=== PATIENT | male | born 1990 | race American Indian/Alaskan Native ===

== ENCOUNTER 2016-09-14 20:56 | Emergency (ER) | payer BC, OTHER ==
[2016-09-14 22:50] LABS: Basophils % (Auto) 0.3 % (0.0-1.8); Eosinophils % (Auto) 4.2 % (0.0-4.3); Hematocrit 44.8 % (35.5-45.6); Hemoglobin 15.5 gm/dl (11.8-15.2); Mean Corpuscular HGB Conc 35 % (32-34); Mean Corpuscular Hemoglobin 30 pg (28-32); Mean Corpuscular Volume 87 fl (84-94); Platelet Count 264 K/mm3 (140-440); Red Blood Count 5.13 M/mm3 (3.65-5.03); Red Cell Distribution Width 13.5 % (13.2-15.2); White Blood Count 10.9 K/mm3 (4.5-11.0)
[2016-09-14 23:06] LABS: Bilirubin,Urine NEG (Negative); Blood,Urine NEG (Negative); Ketones,Urine NEG (Negative); Leukocyte Esterase,Urine NEG (Negative); Nitrite,Urine NEG (Negative); Protein,Urine <15 mg/dL mg/dL (Negative); Urobilinogen,Urine < 2.0 mg/dL (<2.0); WBC,Urine < 1.0 /HPF (0.0-6.0)
[2016-09-14 23:11] LABS: Alanine Aminotransferase 16 units/L (7-56); Albumin 4.5 g/dL (3.9-5); Albumin/Globulin Ratio 1.7 %; Alkaline Phosphatase 88 units/L (35-129); Anion Gap 17 mmol/L; Bilirubin,Total 0.2 mg/dL (0.1-1.2); Blood Urea Nitrogen 14 mg/dL (9-20); Calcium 9.4 mg/dL (8.4-10.2); Carbon Dioxide 29 mmol/L (22-30); Chloride 97.5 mmol/L (98-107); Glucose 93 mg/dL (75-100); Lipase 59 units/L (13-60); Potassium 4.1 mmol/L (3.6-5.0); Sodium 139 mmol/L (137-145); Total Protein 7.2 g/dL (6.3-8.2)
[2016-09-15] MEDS ORDERED: NACL 0.9% 1000 ML IV ONE (11:16)
[2016-09-15] MEDS ORDERED: NACL ONE (11:18)
[2016-09-15] MEDS ORDERED: ZOFRAN IV ONE (11:18)
[2016-09-15] MEDS ORDERED: PROTONIX IV ONE (11:18)
--- NOTE | 2016-09-15 11:22 | Emergency Department Report ---
HPI - General Chief Complaint: Abdominal Pain Time Seen by Provider: 09/15/16 10:58 - HPI HPI: Chief complaint: Nausea vomiting and diarrhea HPI: Patient complains of a 2 day history of nausea and vomiting and soft bowel movements. Patient complains of upper abdominal pain that is sharp and continuous. Patient denies melena. Patient states he has to 3 episodes of emesis a day but is able to eat fluids down and crackers. Patient states he's had approximately 5 soft stools a day for the last 2 days. No blood in vomit or stool. Patient has had occasional episodes of gastroenteritis but nothing has ever lasted for 2 days. Patient states he has an uncle with Crohn's disease. Mode of arrival: private car Source: Patient Began: 2 days ago Duration: 2 days Context: See above Quality: Sharp Severity: Mild to moderate Improved with: Nothing Worsened with: Nothing Associated signs and symptoms: Patient has a smoker's cough but no fever. ED Past Medical Hx - Past Medical History Previous Medical History?: Yes Hx Hypertension: Yes - Surgical History Past Surgical History?: No - Social History Smoking Status: Current Every Day Smoker Substance Use Type: None - Medications Home Medications: Home Medications Medication Instructions Recorded Confirmed Last Taken Type Hyoscyamine Subl [Levsin Sl 0.125 0.125 mg SL Q6HR PRN #20 tab 12/09/15 Unknown Rx TAB] Metoprolol [Lopressor] 25 mg PO QDAY 12/09/15 12/13/15 12/12/15 21:00 History Promethazine [Phenergan TAB] 25 mg PO Q6HR PRN #20 tab 12/09/15 12/13/15 Unknown Rx Ibuprofen [Motrin] 600 mg PO Q8H PRN #20 tablet 12/13/15 Unknown Rx Penicillin Vk [Veetids TAB] 500 mg PO BID #20 tablet 12/13/15 Unknown Rx Omeprazole Magnesium [PriLOSEC Otc] 20 mg PO QDAY #10 tablet. 09/15/16 Unknown Rx Ondansetron [Zofran Odt] 4 mg PO Q4H PRN #7 tab.gaildis 09/15/16 Unknown Rx ED Review of Systems ROS: Stated complaint: ABD PAIN Other details as noted in HPI ROS Constitutional: No fever ENT: No uri symptoms Cardiovascular: No chest pain Respiratory: No sob GI: See HPI : No dysuria frequency or urgency, Skin: No rash Neuro: No focal weakness or numbness Psych: No depression Elvis/lymph: No edema Physical Exam - Physical Exam Vital Signs: Vital Signs 09/14/16 09/15/16 09/15/16 21:58 02:19 05:55 Temperature 98.3 F 98.1 F 97.9 F Pulse Rate 60 70 69 Respiratory 18 18 18 Rate Blood Pressure 124/71 Blood Pressure 122/72 123/69 [Left] O2 Sat by Pulse 99 99 100 Oximetry Physical Exam: GENERAL: The patient is well-developed well-nourished . HEENT: Normocephalic. Atraumatic. Extraocular motions are intact. Patient has moist mucous membranes. NECK: Supple. No meningitic signs are noted. There is no adenopathy noted. CHEST/LUNGS: Clear to auscultation. There is no respiratory distress noted. HEART/CARDIOVASCULAR: Regular. There is no tachycardia. There is no gallop rub or murmur. ABDOMEN: Abdomen is soft, epigastric and upper abdominal tenderness without rebound or guarding. Patient has normal bowel sounds. There is no abdominal distention. SKIN: There is no rash. There is no edema. There is no diaphoresis. NEURO: The patient is awake, alert, and oriented. The patient is cooperative. The patient has no focal neurologic deficits. The patient has normal speech. MUSCULOSKELETAL: There is no tenderness or deformity. There is no limitation range of motion. There is no evidence of acute injury. ED Course Vital Signs 09/14/16 09/15/16 09/15/16 21:58 02:19 05:55 Temperature 98.3 F 98.1 F 97.9 F Pulse Rate 60 70 69 Respiratory 18 18 18 Rate Blood Pressure 124/71 Blood Pressure 122/72 123/69 [Left] O2 Sat by Pulse 99 99 100 Oximetry - Reevaluation(s) Reevaluation #1: 09/15/16 11:24 Patient will be given a liter of normal saline and Zofran Protonix IV. ED Medical Decision Making - Lab Data Result diagrams: 09/14/16 22:32 09/14/16 22:32 Laboratory Tests 09/14/16 22:32 Lipase 59 Urinalysis within normal limits. - Radiology Data Radiology results: report reviewed (CT abdomen shows no acute process.) Critical care attestation.: If time is entered above; I have spent that time in minutes in the direct care of this critically ill patient, excluding procedure time. ED Disposition Clinical Impression: Gastroenteritis Disposition: DISCHARGED TO HOME OR SELFCARE Is pt being admited?: No Does the pt Need Aspirin: No Condition: Stable Instructions: Gastroenteritis (ED) Prescriptions: Omeprazole Magnesium [PriLOSEC Otc] 20 mg PO QDAY #10 tablet. Ondansetron [Zofran Odt] 4 mg PO Q4H PRN #7 tab.rapdis PRN Reason: Nausea And Vomiting Referrals: PRIMARY CARE, [Primary Care Provider] - 3-5 Days [facility] [Provider Group] - 3-5 Days (You can follow-up with [facility] if you're symptoms persist for further evaluation. ) Time of Disposition: 12:19
--- NOTE | 2016-09-15 12:02 | Cat Scan Report ---
CT scan of abdomen and pelvis with IV contrast: History: Abdominal pain Findings: Normal lung bases. No pleural or pericardial effusion. Normal liver spleen pancreas and gallbladder. Normal adrenals and kidney parenchyma. No free intraperitoneal fluid or air. Normal aorta. No evidence of adenopathy. Small umbilical hernia containing fat. Gaseous colon with moderate amount of stool throughout colon. No evidence of appendicitis or diverticulitis. Impression: Small umbilical hernia containing fat. Gaseous colon with stool in colon.
[2016-09-15 12:58] VITALS: BP 115/63
== END 2016-09-15 12:40 | disposition home or self-care (01) ==
LOC: ED 20:56
DX: K52.9 Noninfective gastroenteritis and colitis, unspecified (principal); I10 Essential (primary) hypertension; F17.200 Nicotine dependence, unspecified, uncomplicated
CPT/HCPCS: 36415; 74177; 80053; 81001; 83690; 85025; 96374; 96375; 99284; C9113; J2405; J7030; Q9967